=== PATIENT | male | born 1985 | race Caucasian/White ===

== ENCOUNTER 2019-03-03 13:20 | Emergency (ER) | payer OTHER ==
[~2019-03-03] VITALS: Ht 180.3 cm; Wt 85.7 kg
== END 2019-03-03 16:57 | disposition home or self-care (01) ==
LOC: ER 13:20
DX: L02.512 Cutaneous abscess of left hand (principal)

== ENCOUNTER 2019-04-29 10:13 | Emergency (ER) | payer OTHER ==
[~2019-04-29] VITALS: Ht 180.3 cm; Wt 85.7 kg
== END 2019-04-29 13:51 | disposition home or self-care (01) ==
LOC: ER 10:13
DX: B34.9 Viral infection, unspecified (principal)

== ENCOUNTER 2019-05-05 15:27 | Emergency (ER) | payer OTHER ==
[~2019-05-05] VITALS: Ht 180.3 cm; Wt 85.7 kg
== END 2019-05-05 21:42 | disposition home or self-care (01) ==
LOC: ER 15:27
DX: J06.9 Acute upper respiratory infection, unspecified (principal)